=== PATIENT | male | born 1995 | race Caucasian/White ===

== ENCOUNTER 2022-12-16 18:35 | Emergency (ER) | payer BC, OTHER ==
[~2022-12-16] VITALS: Ht 175.3 cm; Wt 81.8 kg
[2022-12-16 18:38] VITALS: TEMP 98.6
[2022-12-16] MEDS ORDERED: ACETAMINOPHEN 325 MG TABLET PO ONE (19:00)
[2022-12-16] MEDS ORDERED: IBUPROFEN 600 MG TABLET PO ONE (19:00)
[2022-12-16 20:36] VITALS: BP 139/75; PULSE 89; RESP 20
== END 2022-12-16 20:36 | disposition home or self-care (01) ==
LOC: EMS 18:37
DX: S73.101A Unspecified sprain of right hip, initial encounter (principal); F17.210 Nicotine dependence, cigarettes, uncomplicated; Z90.49 Acquired absence of other specified parts of digestive tract; W18.39XA Other fall on same level, initial encounter; Y93.02 Activity, running; Y92.832 Beach as the place of occurrence of the external cause; Y99.8 Other external cause status
CPT/HCPCS: 73502; 99283